=== PATIENT | female | born 1950 | race Caucasian/White ===

== ENCOUNTER → 2019-09-01 15:42 | Outpatient (CLI) | payer MEDICARE, SELFPAY ==
[2019-09-01 16:48] LABS: Basophils % 0.8 % (0.1-2.0); Eosinophils % 1.7 % (0.1-12.0); Hemoglobin 13.2 g/dL (12.2-16.2); Lymphocytes # 1.1 K/mm3 (0.7-4.5); Lymphocytes % 45.9 % (10-50); Mean Corpuscular HGB Conc 32.3 g/dL (31.8-35.4); Mean Corpuscular Hemoglobin 30.4 pg (27.0-31.2); Mean Corpuscular Volume 94.1 fl (81-99); Mean Platelet Volume 8.6 fl (7.4-10.4); Monocytes # 0.2 K/mm3 (0.1-1.0); Monocytes % 9.3 % (1.7-9.3); Neutrophils # 1.1 K/mm3 (1.8-7.8); Neutrophils % 42.3 % (37.0-80.0); Platelet Count 282 K/mm3 (142-424); Red Blood Count 4.35 M/mm3 (4.20-5.40); Red Cell Distribution Width 13.1 % (11.5-17.5); White Blood Count 2.5 K/mm3 (4.8-10.8)
[2019-09-01 17:40] LABS: Erythrocyte Sedimentation Rate 5 mm/hr (0-30)
[2019-09-01 18:41] LABS: Alanine Aminotransferase 21 U/L (12-78); Albumin Level 3.7 gm/dL (3.4-5.0); Albumin/Globulin Ratio 1.4 (1.1-1.8); Alkaline Phosphatase 73 U/L (46-116); Anion Gap 9.6 mEq/L (5-15); Aspartate Amino Transferase 17 U/L (15-37); Bilirubin,Total 0.4 mg/dL (0.2-1.0); Blood Urea Nitrogen 22 mg/dL (7-18); Calcium 9.1 mg/dL (8.5-10.1); Carbon Dioxide 30 mmol/L (21.0-32.0); Chloride 103 mmol/L (98-107); Creatinine,Serum 0.74 mg/dL (0.55-1.02); Estimated Glomerular Filt Rate 78 ml/min (>60); Free T4 (Free Thyroxine) 0.88 ng/dl (0.76-1.46); GFR (African American) 94 ML/MIN (>60); Globulin 2.7 gm/dl (1.3-3.2); Glucose 85 mg/dL (74-106); Potassium 4.6 mmoL/L (3.5-5.1); Sodium 138 mmol/L (136-145); Thyroid Stimulating Hormone 3.21 uIU/ml (0.358-3.740); Total Protein,Serum 6.4 gm/dL (6.4-8.2)
[2019-09-01 18:48] LABS: C-Reactive Protein < 0.2 mg/dL (0.0-0.9)
[2019-09-03 12:03] LABS: RA Latex Turbid. <10.0 IU/mL (0.0-13.9); Vitamin D 25 Hydroxy 30.8 ng/mL (30.0-100.0)
== END ==
PROVIDERS: Visit Provider Nurse Practitioner Family
DX: M25.50 Pain in unspecified joint (principal); R53.83 Other fatigue
CPT/HCPCS: 80053; 82652; 84439; 84443; 85025; 85651; 86140; 86431

== ENCOUNTER → 2019-09-02 08:25 | Outpatient (CLI) | payer MEDICARE, SELFPAY ==
--- NOTE | 2019-09-02 08:33 | XR_ITS ---
PROCEDURE: XR LUMBAR SPINE 2-3V CLINICAL INDICATION: pain COMPARISON: No exams were available for comparison FINDINGS: There is mild lumbar scoliosis convex left with multilevel degenerative disc disease. There is partial lumbarization of S1. Severe degenerative disc disease is present at L1-L2 L2-L3 L3-L4 and L4-5. There is mild anterolisthesis of L5 on S1 of 4 mm. Severe facet arthritic changes are present at L4-L5 and S1. There is mild wedging along the right lateral aspect of L2. No acute fracture or dislocation is evident. There is reversal of the kyphosis at L1-L2. IMPRESSION: Kyphoscoliosis of the lumbar spine with severe spondylosis Dictated by: Uday Head MD 09/02/2019 10:47 Electronically signed by Uday Head MD in [place] 09/02/2019 10:47
== END ==
PROVIDERS: PCP Emergency Medicine; Visit Provider Nurse Practitioner Family
DX: M25.50 Pain in unspecified joint (principal); M54.5 Low back pain
CPT/HCPCS: 72100

== ENCOUNTER → 2019-09-30 09:25 | Outpatient (CLI) | payer MEDICARE, SELFPAY ==
--- NOTE | 2019-09-30 09:28 | MR_ITS ---
PROCEDURE: MR LUMBAR SPINE WO CON CLINICAL INDICATION: LUMBAR DDD Low back pain which is worsening with right leg pain COMPARISON: XR LUMBAR SPINE 2-3V from 09/02/2019 TECHNIQUE: Standard multiplanar multiecho sequences are performed without contrast. 3-D MIP and myelographic images are also rendered and reviewed FINDINGS: There is lumbar scoliosis convex left of 25 degrees. The spinal cord ends at the L1-L2 level. There is partial lumbarization of S1. Multilevel degenerative disc disease with lumbar spondylosis is noted. T11-T12: Unremarkable. T12-L1: Facet and ligamentum hypertrophy with moderate bilateral foraminal narrowing. T12-L1: Degenerate disc disease with mild bulging disc with facet and ligamentum hypertrophy with moderate right and moderate to severe left foraminal narrowing. L1-L2: Degenerative disc disease with mild retrolisthesis of L1 of 3 mm. There is moderate right-sided facet hypertrophy with moderate to severe right foraminal narrowing L2-L3: 4 mm retrolisthesis L2 with severe degenerative disc disease along facet and ligamentum hypertrophy with severe right-sided foraminal narrowing and right lateral recess narrowing. The apex of the scoliosis convex left is present at L2-L3 L3-L4: Bulging disc with facet and ligamentum hypertrophy. 3 mm retrolisthesis of L3. Moderate to severe right foraminal narrowing and severe left foraminal narrowing with transverse narrowing of the canal. There is also severe left lateral recess narrowing from the facet and ligamentum hypertrophy and bulging disc L4-5:. Degenerative disc disease with bulging disc along with facet ligamentum hypertrophy with moderate to severe right foraminal and severe left foraminal narrowing with canal stenosis. L5-S1: Mild anterolisthesis of L5 of 3 mm with bulging disc with moderate bilateral foraminal narrowing. No extruded herniated disc evident. IMPRESSION: Abnormal MRI of the lumbar spine with levoscoliosis and multilevel degenerative disc disease with facet and ligamentum hypertrophy with varying levels of foraminal and lateral recess narrowing from T12-S1. Please see above for detailed description at each level. There is narrowing of the canal at L4-L5 in transverse narrowing of the canal at L3-L4. No extruded herniated disc evident. No acute fracture. Dictated by: Uday Head MD 10/02/2019 08:42 Electronically signed by Uday Head MD in [place] 10/02/2019 08:42
== END ==
PROVIDERS: PCP Emergency Medicine; Visit Provider Orthopaedic Surgery Adult Reconstructive Orthopaedic Surgery
DX: M51.36 Other intervertebral disc degeneration, lumbar region (principal)
CPT/HCPCS: 72148; 76376

== ENCOUNTER 2021-06-05 13:07 | Emergency (ER) | payer MEDICARE, SELFPAY ==
[2021-06-05 15:29] VITALS: BP 132/80; PULSE 65; RESP 18; TEMP 37; O2SAT 98; BMI 31.8
--- NOTE | 2021-06-05 16:05 | HMH.EDUTC ---
[facility] – [place] Disposition Clinical Impression: Acute bronchitis Qualifiers: Bronchitis organism: unspecified organism Qualified Code(s): J20.9 - Acute bronchitis, unspecified Disposition: Home, Self-Care Condition on Discharge: Good Instructions: DI for Acute Bronchitis Additional Instructions: Drink plenty of fluids. Take tylenol or ibuprofen for pain or fever. Take the medications as directed. Follow up with your regular doctor. GO TO THE ER FOR ANY WORSENING SYMPTOMS Don't start the oral steroids (prednisone) until tomorrow, since you had the shot here today. The cough medication (promethazine dm) will make you drowsy, so don't drive or operate heavy machinery after taking it. Prescriptions: predniSONE [Deltasone 10mg tablet] 10 mg PO BID 5 Days #10 tab Transmission Status: Received by [facility] Benzonatate [Tessalon Perle 100mg Cap] 100 mg PO TIDP PRN #30 cap PRN Reason: Cough Transmission Status: Received by [facility] Azithromycin [Z-Rjei 250mg Tab*] 250 mg PO UD DOSE PK #6 tab Transmission Status: Received by [facility] Referrals: Provider,Referral, MD [Primary Care Provider] - Time of Disposition: 17:04 Medical Decision Making - Medical Records Medical records reviewed: No: I reviewed the patient's medical records. - Trevor Inquiry Pt receiving controlled substance: No Vital Signs: 06/05/21 15:29 06/05/21 17:10 Temperature 98.6 F 98 F Temperature Source Oral Pulse Rate 63 Pulse Rate [Left] 65 Respiratory Rate 18 20 Blood Pressure 127/79 Blood Pressure [Right Arm] 132/80 Blood Pressure Mean [Right Arm] 97 02 Sat by Pulse Oximetry 98 - Lab Data Lab results reviewed: Yes: I reviewed the patient's lab results. Orders (Tests/Meds): ED MEDICATIONS Discontinued Medications Generic Name Dose Route Start Last Admin Trade Name Freq PRN Reason Stop Dose Admin Ceftriaxone Sodium 1 gm 06/05/21 16:49 06/05/21 17:04 Ceftriaxone 1gm Vial IM 06/05/21 16:50 1 gm ONCE ONE Administration Protocol Lidocaine HCl 0 ml 06/05/21 16:49 06/05/21 17:04 Lidocaine 1% 5ml Pf Vial IM 06/05/21 16:50 2.5 ml ONCE ONE Administration Methylprednisolone Sodium Succinate 125 mg 06/05/21 16:49 06/05/21 17:04 Methylprednisolone Sod Succ 125mg Vial IM 06/05/21 16:50 125 mg ONCE ONE Administration [facility] [place] HPI - General Stated complaint: cough,weakness,no appetite Time Seen by Provider: 06/05/21 16:05 Mode of Arrival: Ambulatory Source of Information: Patient Limitations: No Limitations Description of Symptoms (Recalled from Triage Doc. by RN): pt c/o a cough for over a week, weakness and tiredness. HEENT Symptoms (Recalled from RN notes): No Resp Symptoms (Recalled from RN notes): Yes (cough) Skin Symptoms (Recalled from RN notes): No MS Symptoms (Recalled from RN notes): No Functional Status (Recalled from RN notes): lethargy and weakness - History of Present Illness Provider Complaint: She states that for the past 1 week she has felt bad, had a cough and chest and sinus congestion. She denies any known covid exposure. She did have a negative covid test at a different [facility] 3 days ago. She states she was diagnosed with allergies there and given a cough medication. She states that she has continued to progressively feel worse since then. - Related Data Home Medications Medication Instructions Recorded Confirmed bupropion HCl 100 mg tablet,12 hr 100 mg PO BID 09/01/19 11/17/19 sustained-release fluoxetine 20 mg capsule 20 mg PO DAILY 09/01/19 11/17/19 trazodone 100 mg tablet 100 mg PO DAILY 09/01/19 11/17/19 predniSONE [Deltasone 20mg 20 mg PO BID 11/17/19 11/17/19 tablet] Previous Rx's Medication Instructions Recorded Azithromycin [Z-Reji 250mg Tab*] 250 mg PO UD DOSE PK #6 tab 06/05/21 Benzonatate [Tessalon Perle 100mg 100 mg PO TIDP PRN #30 cap 06/05/21 Cap] predniSONE [
--- NOTE | 2021-06-05 16:10 | XR_ITS ---
PROCEDURE: XR CHEST 2V CLINICAL HISTORY: chest congestion, cough COMPARISON: No exams were available for comparison FINDINGS: The cardiomediastinal silhouette and pulmonary vascularity are within normal limits. Coronary artery calcification and/or stents noted. No acute bony abnormalities. IMPRESSION: No acute findings. Dictated by: Uday Head MD 06/05/2021 16:44 Uday Head MD in [place] 06/05/2021 16:44
[2021-06-05 17:10] VITALS: BP 127/79; PULSE 63; RESP 20; TEMP 36.6
== END 2021-06-05 17:17 | disposition home or self-care (01) ==
PROVIDERS: Emergency Provider Nurse Practitioner Family
DX: J20.9 Acute bronchitis, unspecified (principal)
CPT/HCPCS: 71046; 96372; 99202; G0463; U0003

== ENCOUNTER 2022-08-17 09:54 | Emergency (ER) | payer MEDICARE, SELFPAY ==
[2022-08-17 10:11] VITALS: BP 156/81; PULSE 71; RESP 18; TEMP 36.8; O2SAT 96; BMI 31.8
--- NOTE | 2022-08-17 10:15 | CT_ITS ---
FINAL REPORT TECHNIQUE: After the administration of intravenous contrast, axial images were obtained through the abdomen and pelvis by computed tomography. This study was performed with technique to keep radiation doses as low as reasonably achievable, (ALARA). Individualized dose reduction techniques using automated exposure control or adjustment of the MA and/or KV according to the patient's size were employed. CLINICAL HISTORY: mid abdominal pain, doesn t radiate FINDINGS: Abdomen: The lung bases demonstrate mild bibasilar atelectasis. There are 3, small hepatic cysts. Liver is otherwise unremarkable. Gallbladder is present. The spleen is unremarkable. The adrenals are normal. The pancreas is unremarkable. The kidneys enhance appropriately. The aorta is normal in caliber. There is no free fluid or adenopathy. Pelvis: The appendix is normal. There is moderate stool throughout the colon. Patient is status post hysterectomy. The urinary bladder is unremarkable. There is no free fluid or adenopathy. IMPRESSION: No acute intra-abdominal process. Reviewed, Interpreted and Dictated by Malcolm Flores III, MD Transcribed by Nabila Guzman Authenticated and [facility]
--- NOTE | 2022-08-17 10:22 | HMH.EDGENADL ---
Discharge Plan Disposition Patient Disposition: Home, Self-Care Condition: Good Prescriptions Prescriptions: New nitrofurantoin macrocrystal 100 mg capsule 100 mg PO BID 5 Days Qty: 10 0RF Rx Instructions: must administer with a meal/food No Action bupropion HCl 100 mg tablet sustained-release 12 hr 100 mg PO BID fluoxetine 20 mg capsule 20 mg PO DAILY trazodone 100 mg tablet 100 mg PO DAILY prednisone 10 MG tablet 10 mg PO BID 5 Days Qty: 10 0RF azithromycin 250 MG tablet 250 mg PO UD DOSE PK Qty: 6 0RF Rx Instructions: Take two (2) tablets today, then one (1) tablet days #2 thru #5 benzonatate 100 MG capsule 100 mg PO TIDP PRN (Reason: Cough) Qty: 30 0RF prednisone 20 MG tablet 20 mg PO BID Rx Instructions: administer with food or milk Referrals Follow up/Referrals: Juan Tanner JR, MD [Primary Care Provider] - See instructions Clinical Impressions Clinical Impression: Cystitis Instructions Patient Instructions: DI for Acute Abdominal Pain Discharge ED Provider: Darek Calix General Adult HPI General Chief complaint: Abdominal Pain Stated complaint: Stomach Pain Time Seen by Provider: 08/17/22 10:00 Mode of Arrival: Ambulatory Source of Information: Patient Limitations: No Limitations Description of Symptoms (Recalled from ER Triage Doc. by RN): pt to ed c/o mid abd pain, nausea and episodes of emesis yesterday. pt denies urinary symptoms. pt states this pain has been intermittent the last 3 weeks. History of Present Illness HPI narrative: This is a 72-year-old female with history of ACS status post cardiac stenting remotely who is presenting with abdominal pain. Patient states that abdominal pain started 3 weeks ago when she was resting. The pain comes in waves, is 10 out of 10 at its worst, she was managing it at home with Tylenol and ibuprofen. Today, she presents to the emergency department because 1 day prior to arrival, she began vomiting with the pain (nonbloody, nonbilious) and has been unable to take any solid food, or even water. Pain is mid abdominal, currently 10 out of 10, does not radiate, not mitigated by any interventions at this point. Denies fevers, chills, dysuria, hematuria. Last bowel movement was today and was normal for her, nonbloody. Denies any other concerning relevant history. Related Data Home Medications Medication Instructions Recorded Confirmed bupropion HCl 100 mg tablet,12 hr 100 mg PO BID mood 09/01/19 11/17/19 sustained-release fluoxetine 20 mg capsule 20 mg PO DAILY Depression 09/01/19 11/17/19 trazodone 100 mg tablet 100 mg PO DAILY DEPRESSION 09/01/19 11/17/19 prednisone 20 mg tablet 20 mg PO BID swelling 11/17/19 11/17/19 Previous Rx's Medication Instructions Recorded azithromycin 250 mg tablet 250 mg PO UD DOSE PK #6 tabs 06/05/21 benzonatate 100 mg capsule 100 mg PO TIDP PRN Cough #30 caps 06/05/21 prednisone 10 mg tablet 10 mg PO BID 5 days #10 tabs 06/05/21 nitrofurantoin macrocrystal 100 mg 100 mg PO BID 5 days #10 caps 08/17/22 capsule Allergies Allergy/AdvReac Type Severity Reaction Status Date / Time No Known Allergies Allergy Verified 11/17/19 13:57 PFSH PFSH Social History Smoking Status: Never smoker alcohol intake: never substance use type: denies use current occupational status: unemployed Travel in the last 8 weeks: Inside the [facility] ROS Obtained: Yes All systems reviewed & no additional complaints except as documented Physical Exam General General appearance: alert and in no apparent distress Head Head exam: atraumatic, normocephalic and normal inspection Eye Eye exam: Present normal appearance, PERRL and EOMI ENT ENT exam: Present normal exam, normal oropharynx, mucous membranes moist, TM's normal bilaterally and normal external ear exam Neck Neck exam: Present normal inspection, full ROM and trachea midline; Absent me
--- NOTE | 2022-08-17 10:25 | PC.NURSE ---
rad notified of CT order
--- NOTE | 2022-08-17 10:29 | ECG_ITS ---
APPROVED REPORT Exam: Resting ECG HR:62 bpm ECG Measurements Heart Rate 62 AXES GA 138 P 6 QRSd 89 QRS 51 QT 405 T 24 QTc 410 Conclusion SINUS RHYTHM NORMAL ECG UNCONFIRMED REPORT Electronically signed by : Harry Bell MD 08/18/2022 12:14:54
[2022-08-17 10:33] LABS: Basophils % 1.3 % (0.1-2.0); Eosinophils % 0.4 % (0.1-12.0); Hematocrit 44.5 % (37.0-47.0); Lymphocytes # 1.2 K/mm3 (0.7-4.5); Lymphocytes % 38.5 % (10-50); Mean Corpuscular HGB Conc 33.8 g/dL (31.8-35.4); Mean Corpuscular Hemoglobin 30.4 pg (27.0-31.2); Mean Corpuscular Volume 89.9 fl (81-99); Monocytes # 0.3 K/mm3 (0.1-1.0); Monocytes % 10.4 % (1.7-9.3); Neutrophils # 1.5 K/mm3 (1.8-7.8); Neutrophils % 49.3 % (37.0-80.0); Platelet Count 322 K/mm3 (142-424); Red Blood Count 4.94 M/mm3 (4.20-5.40)
[2022-08-17 10:35] LABS: Chloride 101 mmol/L (98-107); Potassium 3.3 mmoL/L (3.5-5.1); Sodium 139 mmol/L (136-145)
[2022-08-17 10:37] LABS: Alanine Aminotransferase 16 U/L (12-78); Aspartate Amino Transferase 32 U/L (14-36); Blood Urea Nitrogen 18 mg/dl (7-17); Creatine Kinase 69 U/L (30-135); Creatinine Clearance Estimated 59 mL/min (50-200); Estimated Glomerular Filt Rate 98 ml/min (>60); GFR (African American) 119 ML/MIN (>60); Lipase 60 U/L (23-300)
[2022-08-17 10:38] LABS: Albumin Level 4.4 g/dl (3.5-5.0); Albumin/Globulin Ratio 1.9 (1.1-1.8); Alkaline Phosphatase 99 U/L (38-126); Anion Gap 13.3 mEq/L (5-15); Bilirubin,Total 0.5 mg/dl (0.2-1.3); Calcium 9.2 mg/dl (8.4-10.2); Carbon Dioxide 28 mmol/L (22.0-30.0); Globulin 2.3 g/dL (1.3-3.2); Glucose 104 mg/dl (74-100); Total Protein,Serum 6.7 g/dl (6.3-8.2)
--- NOTE | 2022-08-17 10:38 | PC.NURSE ---
pt medicated per MAR. no other needs voiced. pt aware of pending ua sample needed
[2022-08-17 10:47] LABS: CKMB Relative Index 1.9 U/L (0-4.0); Creatine Kinase MB 1.3 ng/ml (0.0-2.03)
[2022-08-17 11:01] LABS: Troponin I < 0.01 ng/ml (0.00-0.034)
--- NOTE | 2022-08-17 11:07 | PC.NURSE ---
pt back from radiology
[2022-08-17 11:16] VITALS: BP 143/68; PULSE 62; RESP 15; O2SAT 95
[2022-08-17 11:30] VITALS: BP 140/67; PULSE 62; RESP 17; O2SAT 94
[2022-08-17 12:01] VITALS: BP 128/68; PULSE 59; O2SAT 94
--- NOTE | 2022-08-17 12:32 | PC.NURSE ---
pt ambulated to the restroom
[2022-08-17 12:36] VITALS: BP 149/73; PULSE 63; RESP 18; O2SAT 95
[2022-08-17 12:40] LABS: Microscopic, Urine URINE MICROSCOPIC (MICROSCOPIC)
[2022-08-17 12:48] LABS: Appearance,Urine CLEAR (Clear); Bilirubin,Urine Negative (Negative); Blood, Urine 1+ (Negative); Color,Urine YELLOW (Yellow); Glucose,Urine (UA) Negative (Negative); Ketones,Urine TRACE (Negative); Leukocyte Esterase,Urine Negative (Negative); Nitrate,Urine POSITIVE (Negative); Protein,Urine Negative (Negative); Specific Gravity, Urine <= 1.005 (1.005-1.030); Urobilinogen,Urine 0.2 EU/dl (0.2)
[2022-08-17 12:55] LABS: Bacteria,Urine Trace /lpf; Squamous Epithelial Cell,Urine Occasional #/hpf (0-5); WBC,Urine Occasional #/hpf (0-3)
[2022-08-17 13:50] VITALS: BP 132/70; PULSE 68; RESP 18; TEMP 36.8; O2SAT 96
== END 2022-08-17 13:51 | disposition home or self-care (01) ==
PROVIDERS: Emergency Provider Emergency Medicine; PCP Family Medicine
DX: N30.90 Cystitis, unspecified without hematuria (principal); Z95.818 Presence of other cardiac implants and grafts
CPT/HCPCS: 74177; 80053; 81001; 82550; 82553; 83605; 83690; 84484; 85025; 93005; 96365; 96375; 99284; J2405; Q9967